=== PATIENT | female | born 1965 | race African-American/Black ===

== ENCOUNTER 2018-05-14 22:58 | Emergency (ER) | payer BC ==
[~2018-05-14] VITALS: Ht 154.9 cm; Wt 86.0 kg
[2018-05-15 01:55] LABS: BASOPHILS % 1.5 % (0.0-2.0); EOSINOPHILS % 0.4 % (0.0-5.0); HEMATOCRIT. 34.3 % (36.0-48.0); HEMOGLOBIN. 11.3 g/dL (12.0-16.0); LYMPHOCYTES % 22.4 % (20.0-50.0); MEAN CORPUSCULAR HEMOGLOBIN 26.2 pg (28.0-32.0); MEAN CORPUSCULAR VOLUME 79.2 fL (81.0-99.0); MEAN PLATELET VOLUME 9.8 fl (7.4-10.4); MONOCYTES % 9.8 % (2.0-8.0); NEUTROPHILS % 65.9 % (40.0-76.0); PLATELET 280 x1000/uL (130-400); RED BLOOD CELL COUNT 4.33 mill/uL (4.2-5.4); RED CELL DISTRIBUTION WIDTH 15.4 % (11.6-14.6)
[2018-05-15 02:06] LABS: CHLORIDE 107 mEq/L (98-107)
[2018-05-15] MEDS ORDERED: IOHEXOL-300 100 ML BOTTLE ONE (02:34)
[2018-05-15 02:39] VITALS: BP 168/51
[2018-05-15] MEDS ORDERED: SULFAMETHOXAZOLE/TRIMETHOPRIM 800/160MG TABLET PO ONE (04:15)
[2018-05-15] MEDS ORDERED: CEPHALEXIN 250MG CAPSULE PO ONE (04:15)
== END 2018-05-15 04:30 | disposition home or self-care (01) ==
LOC: ER 22:58
DX: L03.116 Cellulitis of left lower limb (principal); E11.9 Type 2 diabetes mellitus without complications; E78.00 Pure hypercholesterolemia, unspecified; I10 Essential (primary) hypertension
CPT/HCPCS: 36415; 73701; 80053; 85025; 99285; Q9967; Z7610